=== PATIENT | male | born 1940 | race Caucasian/White ===

== ENCOUNTER → 2017-03-09 | Outpatient (CLI) | payer MEDICARE, OTHER ==
--- NOTE | 2017-03-09 10:17 | KCIC ---
CT CHEST WO CONTRAST dated 03/09/2017 10:00 AM Indication: Cough, history of tobacco use shortness of breath. Comparison: No comparison is available. Technique: Contiguous axial imaging the chest performed without the administration of intravenous contrast. One or more of the following individualized dose reduction techniques were utilized for this examination: 1. Automated exposure control 2. Adjustment of the mA and/or kV according to patient size 3. Use of iterative reconstruction technique Findings: Heart size upper limits of normal. No pericardial effusion. The patient is status post median sternotomy and CABG procedure. There is a mildly enlarged pretracheal lymph node measuring 1.3 cm short axis. Borderline enlarged subcarinal lymph node measuring up to 9 mm short axis. No apparent hilar or axillary lymphadenopathy. Central airways are patent. Mild upper zone emphysema. Linear bands of increased density in the lingula and right middle lobe, likely scar or atelectasis. Lungs are otherwise clear. No consolidation or pleural effusion. No pneumothorax. Limited images of upper abdomen show a small hyperdense nodule at the upper pole left kidney that measures about 10 mm in size, indeterminate (coronal image 38). Gallbladder is surgically absent. Bone windows show no acute findings. Multilevel spondylosis IMPRESSION: 1. No acute abnormality of chest. 2. Mildly enlarged pretracheal and subcarinal lymph nodes, nonspecific. Follow-up imaging may be warranted to ensure stability. 3. Mild emphysema. 4. Indeterminate small nodule at the upper pole left kidney. This could also be followed up on subsequent exams. Electronically signed by: Frankie Sorenson MD (03/09/2017 10:14 AM) [id number]
== END | disposition home or self-care (01) ==
LOC: KCIC CT 09:39
PROVIDERS: ATTEND Internal Medicine Critical Care Medicine
DX: J43.9 Emphysema, unspecified (principal); Z87.891 Personal history of nicotine dependence
CPT/HCPCS: 71250